=== PATIENT | male | born 1960 | race Caucasian/White ===

== ENCOUNTER 2019-05-18 07:26 | Day surgery (SDC) | payer MEDICARE ==
[~2019-05-18] VITALS: Ht 180.3 cm; Wt 123.8 kg
[2019-05-18 07:47] LABS: BASOPHILS 0.6 % (0-2); HEMATOCRIT 34.9 % (42.0-54.0); HEMOGLOBIN 11.1 g/dL (13.5-17.5); IMMATURE GRANULOCYTES 0.4 % (0-5); LYMPHOCYTES 25.4 % (15-50); MCH 27.2 pg (26.0-34.0); MCHC 31.8 g/dL (31.0-37.0); MCV 85.5 fL (80.0-100.0); MEAN PLATELET VOLUME 8.4 fL (7.4-10.4); MONOCYTES 8.2 % (2-11); NEUTROPHILS 60.4 % (40-80); PLATELET COUNT 265 10x3/uL (130-400); RBC 4.08 10x6/uL (4.20-6.10); WBC 6.8 10x3/uL (4.8-10.8)
[2019-05-18 07:56] LABS: ANION GAP 14.5 mmol/L (8-16); CALCIUM 8.4 mg/dL (8.5-10.1); CARBON DIOXIDE 23.7 mmol/L (21.0-32.0); CREATININE - SERUM 4.9 mg/dL (0.6-1.3); POTASSIUM - SERUM 4.2 mmol/L (3.5-5.1)
[2019-05-18 07:59] LABS: INR 1.07 (0.85-1.17); PROTIME 13.4 SECONDS (11.6-15.0)
[2019-05-18] MEDS ORDERED: HUMULIN 70100 UNIT/1 SC (08:48)
[2019-05-18] MEDS ORDERED: FUROSEMIDE40 MG PO (08:49)
[2019-05-18] MEDS ORDERED: NEURONTIN 300300 MG PO (08:49)
[2019-05-18] MEDS ORDERED: FLOMAX0.4 MG PO (08:49)
[2019-05-18] MEDS ORDERED: LIPITOR20 MG PO (08:50)
[2019-05-18] MEDS ORDERED: TRAZODONE HCL150 MG PO (08:50)
[2019-05-18 08:51] VITALS: BP 108/60; Ht 180.3 cm; Wt 123.8 kg
[2019-05-18] MEDS ORDERED: ULTRAM50 MG PO (12:36)
--- NOTE | 2019-05-18 14:42 | NUR ---
1002 VERBAL REPORT TO MARIJA AMAYA R.N.. Tamia SHULTZ R.N.
--- NOTE | 2019-05-18 15:09 | NUR ---
RALES TO UPPER RIGHT POSTERIOR CHEST. PT ON 3 LITERS NC. NO SOB SITTING STRAIGHT UP IN BED. O2 SATS 91 HR 111. ANESTHESIA NOTIFIED, ORDERS GIVEN FOR A XOPENEX RESP TREATMENT. PT DOESNT WEAT ANY O2 AT HOME. RIGHT ARM ELEVATED ON PILLOW PALP THRILL
--- NOTE | 2019-05-18 16:57 | NUR ---
1515 RESP HERE TO GIVE TREATMENT. TOLERATED WELL. ON 2LITERS POST TX. 1530 UP IN CHAIR WITH MODERATED ASSIST. IV REMOVED, INSTRUCTIONS GIVEN. PT DRESSED AND SLING ON TO RIGHT ARM. PT ON ROOM AIR AND O2 SAT 94% PT INSTRUCTED TO SLEEP IN RECLINER TONIGHT. RIGHT ARM ELEVATED ON PILLOW AND PALP THRILL NOTED. FINGERS WARM ABLE TO WIGGLE FINGERS.
--- NOTE | 2019-05-21 11:07 | OP ---
PATIENT NAME: MIKA ONEILL MEDICAL RECORD: [id number] :56 LOCATION:D[facility] ADMISSION DATE: SURGEON: LEAH DELUNA MD DATE OF OPERATION: 05/18/2019 REFERRING PHYSICIAN: Derrell Mcwilliams MD PREOPERATIVE DIAGNOSES: End-stage renal disease and dependence on hemodialysis. POSTOPERATIVE DIAGNOSES: End-stage renal disease and dependence on hemodialysis. OPERATION PERFORMED: Creation of a right wrist radiocephalic arterial venous fistula. SURGEON: Leah Deluna MD ANESTHESIA: Regional nerve block plus general endotracheal per POST GRADUATE INTERN. PREOPERATIVE NOTE: Mr. Oneill is a 59-year-old obese white male patient with end-stage renal disease on hemodialysis at present with a TDC. He is brought to the OR at this time with plans to create a AV fistula in the right arm. The patient initially had requested a PD catheter, but has changed his mind since he was seen in the office and we will not be implanting a PD catheter today. DESCRIPTION OF PROCEDURE: Under anesthesia in supine position, the patient was prepped and draped in a sterile manner. I applied nitroglycerin paste and used a Petrolia drain as a proximal venous tourniquet and identified a slightly small, but I thought adequate, 3 mm cephalic or median antebrachial vein at the wrist and a similar sized radial artery. I made a longitudinal incision and exposed the vein and the adjacent artery and these vessels were treated repeatedly with topical papaverine. They were dissected and then approximated and occluded [id number] with doubly-looped Silastic tapes. A venotomy was made and the vein flushed proximally and distally with heparinized saline. A corresponding arteriotomy was made and flushed with heparinized saline and the anastomosis was then completed with running 7-0 Prolene. With release of the occluding loops, excellent flow developed immediately within the new fistula. A small piece of fibrillar oxidized cellulose hemostatic material was necessary to complete hemostasis along the suture line. The wound was irrigated with saline and then closed with interrupted inverted 3-0 Vicryl and running intracuticular 4-0 Monocryl and Dermabond glue. It was dressed with Maxorb Ag, Tegaderm, and Cavilon skin prep and the patient awakened and extubated and taken to the recovery room. There was no blood loss during the procedure. Sponges, instruments, and needles were accounted for. No drain was used. No surgical specimen was submitted for histopathology. PLAN: The patient will be discharged to home today with a prescription for fourteen 50 mg tramadol tablets and an appointment to return to see me in my office next week. He can leave the original operative dressing intact and shower and wash directly over it as desired. TRANSINT:[id number] Voice Confirmation ID: [id number] DOCUMENT ID: [id number] OPERATIVE REPORT [id number] MIKA ONEILL JAMES MD at 1107 CC: [id number] DICTATION DATE: 05/18/19 1249 [employer]SE SUPERVISOR: 05/18/19 1312 [facility] [place] 05/18/19 [id number] [place] [address]
== END 2019-05-18 16:15 | disposition home or self-care (01) ==
LOC: D.OPS 07:26
PROVIDERS: Surgery; ATTEND Internal Medicine Nephrology
DX: N18.6 End stage renal disease (principal)

== ENCOUNTER 2019-07-27 08:28 | Outpatient (CLI) | payer MEDICARE ==
[~2019-07-27] VITALS: Ht 175.3 cm; Wt 122.5 kg
[~2019-07-27 08:28] MED LIST: FLOMAX0.4 MG PO; FUROSEMIDE40 MG PO; HUMULIN 70100 UNIT/1 SC; LIPITOR20 MG PO; NEURONTIN 300300 MG PO; TRAZODONE HCL150 MG PO; ULTRAM50 MG PO
[2019-07-27 09:06] LABS: BASOPHILS 0.2 % (0-2); EOSINOPHILS 3.2 % (0-7); HEMATOCRIT 40.4 % (42.0-54.0); HEMOGLOBIN 12.9 g/dL (13.5-17.5); IMMATURE GRANULOCYTES 0.2 % (0-5); LYMPHOCYTES 28.5 % (15-50); MCH 29.6 pg (26.0-34.0); MCHC 31.9 g/dL (31.0-37.0); MCV 92.7 fL (80.0-100.0); MEAN PLATELET VOLUME 8.7 fL (7.4-10.4); MONOCYTES 7.1 % (2-11); NEUTROPHILS 60.8 % (40-80); PLATELET COUNT 275 10x3/uL (130-400); RBC 4.36 10x6/uL (4.20-6.10); RDW 16.1 % (11.5-14.5); WBC 8.3 10x3/uL (4.8-10.8)
[2019-07-27 09:14] LABS: INR 1.06 (0.85-1.17); PROTIME 13.3 SECONDS (11.6-15.0)
[2019-07-27 09:15] LABS: ANION GAP 17.4 mmol/L (8-16); CALCIUM 8.6 mg/dL (8.5-10.1); CARBON DIOXIDE 23.3 mmol/L (21.0-32.0); CREATININE - SERUM 5.6 mg/dL (0.6-1.3); POTASSIUM - SERUM 4.7 mmol/L (3.5-5.1)
[2019-07-27] MEDS ORDERED: MIDODRINE HCL10 MG PO (10:16)
[2019-07-27] MEDS ORDERED: REQUIP0.25 MG PO (10:17)
[2019-07-27 10:26] VITALS: BP 98/64; Ht 175.3 cm; Wt 122.5 kg
--- NOTE | 2019-07-27 12:55 | NUR ---
1130 IV REMOVED AND PRESSURE HELD
--- NOTE | 2019-07-27 12:56 | NUR ---
1250 RIDE ARRIVED AND PT HOME IN W/C
== END 2019-07-27 12:50 | disposition home or self-care (01) ==
LOC: D.OPS 08:28 → EDSTATUS 13:30 → D.OPS 15:00
PROVIDERS: ATTEND Internal Medicine Nephrology
DX: T82.590A Other mechanical complication of surgically created arteriovenous fistula, initial encounter (principal); Z99.2 Dependence on renal dialysis; Z53.9 Procedure and treatment not carried out, unspecified reason; N18.6 End stage renal disease; Z48.812 Encounter for surgical aftercare following surgery on the circulatory system

== ENCOUNTER 2019-08-10 07:58 | Day surgery (SDC) | payer MEDICARE ==
[~2019-08-10] VITALS: Ht 175.3 cm; Wt 122.5 kg
[~2019-08-10 07:58] MED LIST changes: +MIDODRINE HCL10 MG PO; +REQUIP0.25 MG PO
[2019-08-10 08:26] LABS: BASOPHILS 0.4 % (0-2); EOSINOPHILS 3.1 % (0-7); HEMATOCRIT 42.2 % (42.0-54.0); HEMOGLOBIN 13.2 g/dL (13.5-17.5); IMMATURE GRANULOCYTES 0.4 % (0-5); LYMPHOCYTES 32.7 % (15-50); MCH 28.9 pg (26.0-34.0); MCHC 31.3 g/dL (31.0-37.0); MCV 92.5 fL (80.0-100.0); MEAN PLATELET VOLUME 8.8 fL (7.4-10.4); MONOCYTES 9.4 % (2-11); PLATELET COUNT 276 10x3/uL (130-400); RBC 4.56 10x6/uL (4.20-6.10); RDW 15.1 % (11.5-14.5)
[2019-08-10 08:37] LABS: ANION GAP 12.7 mmol/L (8-16); CALCIUM 8.5 mg/dL (8.5-10.1); CARBON DIOXIDE 29.3 mmol/L (21.0-32.0); CREATININE - SERUM 5.9 mg/dL (0.6-1.3); INR 0.95 (0.85-1.17); PROTIME 12.2 SECONDS (11.6-15.0)
[2019-08-10] MEDS ORDERED: RENVELA800 MG PO (09:08)
[2019-08-10 09:15] VITALS: BP 103/55; Ht 175.3 cm; Wt 122.5 kg
--- NOTE | 2019-08-10 15:19 | NUR ---
PT STATES HE DOES NOT WANT TO WAIT FOR PROCEDURE. PROCEDURE SCHEDULED FOR 1345. PT IS DR. DELUNA'S 4TH AND FINAL OUTPATIENT PROCEDURE. HAS NOT STARTED ON HIS 3RD PT YET. INFORMED DR. DELUNA THAT MR. ONEILL DOES NOT WANT TO WAIT ANY LONGER. DR. DELUNA STATES UNDERSTANDING. HIS CLINIC WILL RESCHEDULE PROCEDURE W/ PT. DC'D IV CATH FULLY INTACT. PT STATES UNDERSTANDING OF SITUATION. PT LEFT VIA AT 1522.
== END 2019-08-10 15:22 | disposition home or self-care (01) ==
LOC: D.OPS 07:58
PROVIDERS: Surgery; ATTEND Internal Medicine Nephrology
DX: T82.590A Other mechanical complication of surgically created arteriovenous fistula, initial encounter (principal); N18.6 End stage renal disease; Z48.812 Encounter for surgical aftercare following surgery on the circulatory system; Z99.2 Dependence on renal dialysis; Z53.29 Procedure and treatment not carried out because of patient's decision for other reasons

== ENCOUNTER 2019-09-07 05:29 | Day surgery (SDC) | payer MEDICARE ==
[~2019-09-07] VITALS: Ht 175.3 cm; Wt 123.8 kg
[~2019-09-07 05:29] MED LIST changes: +RENVELA800 MG PO
[2019-09-07 06:00] LABS: BASOPHILS 0.3 % (0-2); HEMATOCRIT 37.9 % (42.0-54.0); HEMOGLOBIN 12.3 g/dL (13.5-17.5); IMMATURE GRANULOCYTES 0.6 % (0-5); LYMPHOCYTES 25.4 % (15-50); MCH 29.9 pg (26.0-34.0); MCHC 32.5 g/dL (31.0-37.0); MEAN PLATELET VOLUME 8.8 fL (7.4-10.4); MONOCYTES 9.3 % (2-11); NEUTROPHILS 61.4 % (40-80); PLATELET COUNT 283 10x3/uL (130-400); RBC 4.12 10x6/uL (4.20-6.10); RDW 14.6 % (11.5-14.5); WBC 8.9 10x3/uL (4.8-10.8)
[2019-09-07 06:25] LABS: ANION GAP 15.9 mmol/L (8-16); CALCIUM 8.4 mg/dL (8.5-10.1); CARBON DIOXIDE 23.9 mmol/L (21.0-32.0); POTASSIUM - SERUM 4.8 mmol/L (3.5-5.1)
[2019-09-07 06:56] VITALS: BP 115/73; Ht 175.3 cm; Wt 123.8 kg
[2019-09-07] MEDS ORDERED: HYDROCODON-ACE1 EAC7 PO (10:55)
--- NOTE | 2019-09-11 08:13 | OP ---
PATIENT NAME: MIKA ONEILL MEDICAL RECORD: [id number] :56 LOCATION:[facility] ADMISSION DATE: SURGEON: LEAH DELUNA MD DATE OF OPERATION: 09/07/2019 PREOPERATIVE DIAGNOSES: End-stage renal disease, dependence on hemodialysis, diabetes, and failure of the previously constructed right radiocephalic arteriovenous fistula to mature. POSTOPERATIVE DIAGNOSES: End-stage renal disease, dependence on hemodialysis, diabetes, and failure of the previously constructed right radiocephalic arteriovenous fistula to mature. OPERATION PERFORMED: Ligation of the right wrist radiocephalic arteriovenous fistula and creation of a new right brachiocephalic arteriovenous fistula at the antecubital level. SURGEON: Leah Deluna MD ANESTHESIA: General with LMA per INVASIVE PHYSICIAN. REFERRING PHYSICIAN: Gregory Mcwilliams MD PREOPERATIVE NOTE: Mr. Oneill is a 59-year-old white male patient from [facility] who presently is on hemodialysis with a right internal jugular tunneled dialysis catheter. I had created quite a while ago at least 6 months a right radiocephalic AV fistula, which has failed to mature and has not responded to percutaneous endovascular means of maturing it. He is brought to the operating room with plans to possibly repeat an angiogram and intervention versus creating a new more proximal AV fistula. DESCRIPTION OF PROCEDURE: Under anesthesia in supine position, the patient was prepped and draped in a sterile manner. I examined the right forearm with ultrasound and felt that the existing fistula, though patent, was not going to mature in any reasonable period of time. The radial artery was quite small, as well as irregular shrunken JA segment of vein. I elected to ligate this, but first I examined the antecubital space and noted the basilic and cephalic veins to be suitable for AV fistula creation. I made a transverse incision and exposed the brachial artery and the median cubital vein to the cephalic outflow and these vessels were controlled with Silastic loops. The vein was opened and flushed proximally and distally with heparinized saline and then ligated and transected and bevelled. The artery was opened and flushed proximally and distally with heparinized saline and an end-to-side, end of vein to side of artery anastomosis then carried out with running 7-0 Prolene. With release of the occluding loops and clamps, excellent flow established immediately within the fistula. The wound was irrigated with Ancef and gentamicin solution, infiltrated with 0.25% Marcaine and closed with interrupted inverted 3-0 Vicryl and running intracuticular 4-0 Stratafix. The wrist was then again examined. The previous incision was reopened and the fistula ligated with 3-0 Vicryl and with small Hemoclips. Good flow persisted in the radial artery. That wound was infiltrated with Marcaine, irrigated and then closed with interrupted inverted 3-0 Vicryl and running intracuticular 4-0 Stratafix. Both incisions were sealed and closed with Dermabond glue and dressed with Maxorb Ag, Tegaderm, and Cavilon skin prep. The patient at that point was then awakened and taken to the recovery room in stable condition. OPERATIVE REPORT [id number] MIKA ONEILL There was minimal blood loss, 5 cc estimated. No surgical specimen was submitted. Sponges, instruments, and needles were accounted for. No drain was used. PLAN: For the patient to be discharged today and keep the operative dressings dry and intact until he comes back for an appointment to see me in 7-10 days. He is given a prescription for 10 tablets of Powell 5/325, he can take 1 or 2 p.o. every 4 hours as needed for pain. TRANSINT:[id number] Voice Confirmation ID: [id number] DOCUMENT ID: [id number] cc: [facility]. [phone] LEAH DELUNA MD at 0813 CC: GREGORY MCWILLIAMS MD and [facility] [phone] DICTATION DATE: 09/08/19 1002 [employer] MACHINE OPERATOR: 09/08/19 1022 [facility] 09/07/19 [facility] [address] [place] [address]
== END 2019-09-07 12:20 | disposition home or self-care (01) ==
LOC: D.OPS 05:29
PROVIDERS: ATTEND Internal Medicine Nephrology
DX: T82.590A Other mechanical complication of surgically created arteriovenous fistula, initial encounter (principal); N18.6 End stage renal disease; E11.22 Type 2 diabetes mellitus with diabetic chronic kidney disease; Z99.2 Dependence on renal dialysis; Y83.9 Surgical procedure, unspecified as the cause of abnormal reaction of the patient, or of later complication, without mention of misadventure at the time of the procedure